=== PATIENT | male | born 1970 | race American Indian/Alaskan Native ===

== ENCOUNTER 2021-02-15 12:25 | Emergency (ER) | payer SELFPAY ==
[2021-02-15] MEDS ORDERED: ASPIRIN 325 MG TAB PO ONE (12:32)
--- NOTE | 2021-02-15 12:49 | Event Note ---
ED Screening Note Date of service: 02/15/21 Time: 12:45 ED Screening Note: 50-year-old male who reports no significant past history presents to the ER today with complaints of substernal chest pain Onset 3 days ago. States that has been constant in nature. He reports associated shortness of breath and he also feels like when he eats solid foods he feels like it is getting stuck in his chest. He states that sometimes the food goes down but sometimes he vomits it back up and today he noticed that same thing happened when he drank some liquid. He also complains of blurry vision intermittently to the left eye and he states that he has been having numbness to his left arm and left leg "for a while" but he states that he is concerned because in the past few days he feels like the numbness has "intensified". He also complains of pain in his lower back down to his knees last night. He denies any illicit drug use. He denies tobacco use. He states that he drinks occasionally. This initial assessment/diagnostic orders/clinical plan/treatment(s) is/are subject to change based on patients health status, clinical progression and re- assessment by fellow clinical providers in the ED. Further treatment and workup at subsequent clinical providers discretion. Patient/guardian urged not to elope from the ED as their condition may be serious if not clinically assessed and managed. Initial orders include: Chest pain order set including head CT
--- NOTE | 2021-02-15 13:11 | XRay Report ---
CHEST 2 VIEWS INDICATION / CLINICAL INFORMATION: CP. COMPARISON: None available. FINDINGS: SUPPORT DEVICES: None. HEART / MEDIASTINUM: No significant abnormality. LUNGS / PLEURA: No significant pulmonary or pleural abnormality. No pneumothorax. ADDITIONAL FINDINGS: No significant additional findings. IMPRESSION: 1. No acute findings. Signer Name: Jamarcus Ortega MD Signed: 02/15/2021 1:06 PM Workstation Name: [id number]
--- NOTE | 2021-02-15 13:51 | Cat Scan Report ---
CT HEAD WITHOUT CONTRAST INDICATION / CLINICAL INFORMATION: Left eye blurry/left sided numbness. TECHNIQUE: Axial imaging performed from the skull apex through the skull base without the use of cont rast. Sagittal and coronal reformatted images. All CT scans at this location are performed using CT dose reduction for ALARA by means of automated exposure control. COMPARISON: None available. FINDINGS: CEREBRAL PARENCHYMA: No significant abnormality. No acute territorial infarct. HEMORRHAGE: None. EXTRA-AXIAL SPACES: Normal in size and morphology for the patient's age. VENTRICULAR SYSTEM: Normal in size and morphology for the patient's age. MIDLINE SHIFT OR HERNIATION: None. CEREBELLUM / BRAINSTEM: No significant abnormality. CALVARIUM: No significant abnormality. ORBITS: Normal as visualized. PARANASAL SINUSES / MASTOID AIR CELLS: Normal as visualized. SOFT TISSUES of HEAD: No significant abnormality. ADDITIONAL FINDINGS: None. IMPRESSION: Cranial CT scan within normal limits. Signer Name: Abel Laughlin Jr, MD Signed: 02/15/2021 1:46 PM Workstation Name: [id number]
[2021-02-15 15:32] LABS: Basophils # (Auto) 0.1 K/mm3 (0.0-0.1); Basophils % (Auto) 0.9 % (0.0-1.8); Eosinophils # (Auto) 0.1 K/mm3 (0.0-0.4); Eosinophils % (Auto) 1.6 % (0.0-4.3); Hematocrit 43.1 % (35.5-45.6); Hemoglobin 14.1 gm/dl (11.8-15.2); Lymphocytes # (Auto) 1.8 K/mm3 (1.2-5.4); Lymphocytes % (Auto) 25.7 % (13.4-35.0); Mean Corpuscular HGB Conc 33 % (32-34); Mean Corpuscular Volume 72 fl (84-94); Monocytes # (Auto) 0.6 K/mm3 (0.0-0.8); Monocytes % (Auto) 8.9 % (0.0-7.3); Platelet Count 244 K/mm3 (140-440); Red Blood Count 5.97 M/mm3 (3.65-5.03); Red Cell Distribution Width 15.5 % (13.2-15.2)
[2021-02-15 15:50] LABS: Alanine Aminotransferase 25 units/L (7-56); Albumin 4.1 g/dL (3.9-5); BUN/Creatinine Ratio 9; Blood Urea Nitrogen 9 mg/dL (9-20); Calcium 9.2 mg/dL (8.4-10.2); Hemolysis Index 3
--- NOTE | 2021-02-16 00:17 | Emergency Department Report ---
ED Chest Pain HPI - General Chief Complaint: Chest Pain Stated Complaint: CHEST PAINS Time Seen by Provider: 02/15/21 23:56 Source: patient Mode of arrival: Ambulatory Limitations: No Limitations - History of Present Illness Initial Comments: 50-year-old male, no past medical history, presents to ED for evaluation. First, patient reports he has been having substernal chest pain worse with eating. Patient states it feels as if he is unable to completely swallow his food. States his food does not go down all the way at times and it feels as if he has to force his food down. Patient states this started 4 days ago. Secondly, patient reports numbness and tingling, pins and needle sensation in the left arm and leg. Patient states this is been happening for "a while," but feels like it has become worse over the last 4 days. Patient states the [id number] sensation comes and goes. Patient states the sensation is more intense in his left leg than it is in his arm. Patient denies any weakness in his arm or leg. He denies any facial droop or slurred speech. Thirdly, patient reports that he has been having some lower back pain that radiates down the back of both legs. He denies any recent injury. He denies any numbness or tingling in his right leg or right arm. He denies any urinary or bowel incontinence or retention. Patient also denies any fever. Patient states that the back pain radiating into his legs is worse when he goes to bed at night. Patient states he hardly notices it during the daytime. Patient denies any tobacco use or drug use. Reports only occasional alcohol use. MD Complaint: chest pain -: days(s) (4) Onset: during rest Pain Location: substernal, epigastric Pain Radiation: none Severity: moderate Quality: tightness Consistency: intermittent Improves With: nothing Worsens With: eating re: denies: nausea, vomting, diaphoresis, dyspnea Other Symptoms: denies: cough, fever, syncope, leg swelling - Related Data Previous Rx's Medication Instructions Recorded Last Taken Type Naproxen [Naprosyn] 500 mg PO BID #20 tablet 02/16/21 Unknown Rx methOCARBAMOL [Robaxin TAB] 500 mg PO Q8HR PRN #20 tablet 02/16/21 Unknown Rx Allergies Allergy/AdvReac Type Severity Reaction Status Date / Time No Known Allergies Allergy Verified 02/16/21 00:02 Heart Score - HEART Score History: Slightly suspicious EKG: Normal Age: 45-65 Risk factors: 1-2 risk factors Troponin: < normal limit HEART Score: 2 - EKG Read Time Time EKG Completed: 12:31 EKG Read Time: 12:36 ED Review of Systems ROS: Stated complaint: CHEST PAINS Other details as noted in HPI Comment: All other systems reviewed and negative Constitutional: denies: fever Respiratory: denies: cough, shortness of breath Cardiovascular: chest pain Gastrointestinal: denies: nausea, vomiting Neurological: paresthesias. denies: weakness ED Past Medical Hx - Past Medical History Previous Medical History?: No - Surgical History Past Surgical History?: No - Social History Smoking Status: Never Smoker Substance Use Type: Alcohol - Medications Home Medications: Home Medications Medication Instructions Recorded Confirmed Last Taken Type Naproxen [Naprosyn] 500 mg PO BID #20 tablet 02/16/21 Unknown Rx methOCARBAMOL [Robaxin TAB] 500 mg PO Q8HR PRN #20 tablet 02/16/21 Unknown Rx ED Physical Exam - General Limitations: No Limitations General appearance: alert, in no apparent distress - Head Head exam: Present: atraumatic, normocephalic - Eye Eye exam: Present: normal appearance, EOMI - ENT ENT exam: Present: mucous membranes moist - Neck Neck exam: Present: normal inspection - Respiratory Respiratory exam: Present: normal lung sounds bilaterally. Absent: respiratory distress - Cardiovascular Cardiovascular Exam: Present: regular rate, normal rhythm - GI/Abdominal GI/Abdominal exam: Present: soft. Absent: distended, tenderness - Extremities Exam Extremities exam: Present: normal inspection - Back Exam Back exam: Present: normal inspection. Absent: tenderness - Neurological Exam Neurological exam: Present: alert, oriented X3, CN II-XII intact, normal gait. Absent: motor sensory deficit - Psychiatric Psychiatric exam: Present: normal affect, normal mood - Skin Skin exam: Present: warm, dry, intact, normal color ED Course Vital Signs 02/15/21 02/15/21 02/16/21 12:27 23:53 00:01 Temperature 98.3 F Pulse Rate 78 88 Respiratory 18 16 17 Rate Blood Pressure 140/82 150/74 O2 Sat by Pulse 99 100 Oximetry 02/16/21 02/16/21 02/16/21 00:14 00:21 00:31 Temperature Pulse Rate 79 77 Respiratory 21 15 Rate Blood Pressure 150/74 150/74 O2 Sat by Pulse 100 99 100 Oximetry 02/16/21 00:45 Temperature Pulse Rate 72 Respiratory 20 Rate Blood Pressure 150/74 O2 Sat by Pulse 100 Oximetry ED Medical Decision Making - Lab Data Result diagrams: 02/15/21 15:14 02/15/21 15:14 - EKG Data -: EKG Interpreted by Me EKG shows normal: sinus rhythm, axis, intervals, QRS complexes, ST-T waves Rate: normal - Radiology Data Radiology results: report reviewed, image reviewed - Medical Decision Making 50-year-old male presents to ED with multiple complaints including chest pain wo rse with eating, left-sided paresthesias, lower back pain radiating into bilateral legs. Patient has no neuro deficits on exam. Gait is normal. CT head shows no acute changes. Low suspicion for stroke. Chest x-ray is normal. EKG shows no ST changes. Troponin is negative x3. X-ray lumbar spine unremarkable as well. Vital signs are stable. Labs are normal. Patient advised to follow-up with outpatient referrals. Prescriptions will be given. Return precautions given. - Differential Diagnosis ACS, esophageal stricture, radiculopathy, Critical care attestation.: If time is entered above; I have spent that time in minutes in the direct care of this critically ill patient, excluding procedure time. ED Disposition Clinical Impression: Chest pain, Lumbar radiculopathy, Paresthesia Disposition: - TO HOME OR SELFCARE Is pt being admited?: No Condition: Stable Instructions: Nonspecific Chest Pain, Adult, Gastroesophageal Reflux Disease, Adult, Freb-[id number], Lumbosacral Radiculopathy, Esophageal Stricture Prescriptions: Naproxen [Naprosyn] 500 mg PO BID #20 tablet methOCARBAMOL [Robaxin TAB] 500 mg PO Q8HR PRN #20 tablet PRN Reason: Muscle Spasm Referrals: LAVELL HUNT MD [Primary Care Provider] - 3-5 Days LEANDRO FUNEZ MD [Referring] - 3-5 Days [facility] [Provider Group] - 3-5 Days ANGELICA TORRES II, MD [Staff Physician] - 3-5 Days Time of Disposition: 00:45
[2021-02-16 00:19] VITALS: BP 150/74
[2021-02-16] MEDS ORDERED: ASPIRIN 325 MG TAB PO ONE (00:20)
--- NOTE | 2021-02-16 00:35 | XRay Report ---
LUMBAR SPINE 2 VIEWS INDICATION / CLINICAL INFORMATION: Back pain. COMPARISON: None available. FINDINGS: VERTEBRAE: No acute fracture. No significant malalignment. DISC SPACES / FACET JOINTS:No significant abnormality. PARASPINAL SOFT TISSUES:No significant abnormality. ADDITIONAL FINDINGS: None. Signer Name: Alyssa Carpenter MD Signed: 02/16/2021 12:31 AM Workstation Name: [id number]
--- NOTE | 2021-02-16 11:07 | Electrocardiograph Report ---
[facility] Test Date: 2021-02-15 Test Time: 12:31:06 Pat Name: LURDES MAIER Department: Room: Gender: M Motion And Time Study Teacher: KIP : 1970 Requested By: ED DOC Order Number: [id number] Reading MD: Luisana Kirk Measurements Intervals [place] Rate: 76 P: 57 AL: 164 QRS: 14 QRSD: 86 T: 4 QT: 370 QTc: 416 Interpretive Statements Sinus rhythm LAE, consider biatrial enlargement Probable left ventricular hypertrophy No previous ECG available for comparison Electronically Signed On 02-16-2021 11:07:27 EDT by Luisana Kirk
--- NOTE | 2021-02-17 12:56 | Electrocardiograph Report ---
[facility] Test Date: 2021-02-16 Test Time: 00:28:59 Pat Name: LURDES MAIER Department: Room: Gender: M Relief Pilot: LIZBETH : 1970 Requested By: DEVYN SHABAZZ Order Number: [id number] Reading MD: Luisana Kirk Measurements Intervals [place] Rate: 69 P: 25 GA: 172 QRS: 26 QRSD: 89 T: 0 QT: 386 QTc: 414 Interpretive Statements Sinus rhythm Consider left ventricular hypertrophy Early repolarization ST changes Compared to ECG 02/15/2021 12:31:06 No significant changes Electronically Signed On 02-17-2021 12:56:39 EDT by Luisana Kirk
== END 2021-02-16 01:15 | disposition home or self-care (01) ==
LOC: ED 12:25
DX: R07.81 Pleurodynia (principal); M54.16 Radiculopathy, lumbar region; R20.0 Anesthesia of skin
CPT/HCPCS: 36415; 70450; 71046; 72100; 80053; 83690; 84484; 85025; 93005; 99284